=== PATIENT | male | born 1955 | race Caucasian/White ===

== ENCOUNTER 2023-10-29 13:32 | Inpatient (IN) | payer MEDICARE, OTHER ==
[~2023-10-29] VITALS: Ht 177.8 cm; Wt 66.0 kg
[~2023-10-29 13:32] MED LIST: ASPI81EC PO; CEFU500 PO; METR500 PO
[2023-10-29] MEDS ORDERED: NS 1,000 ML IV SCH ×2 (13:45→15:40)
[2023-10-29 14:24] LABS: Source, Urine Clean Catch
[2023-10-29 14:26] LABS: Appearance, Urine Clear (Clear); Bilirubin, Urine Neg (Neg); Blood, Urine Neg (Neg); Color, Urine Yellow (P-Yellow); Glucose Qualitative, Urine Neg (Neg); Ketones, Urine Neg (Neg); Leukocyte Esterase, Urine Neg (Neg); Nitrite, Urine Neg (Neg); Protein, Urine Neg (Neg); Urobilinogen, Urine NORM (Normal)
[2023-10-29 14:32] LABS: Bun/Creatinine Ratio 20.2 (12.0-20.0); Calcium, Blood 9.3 mg/dL (8.5-10.1); Creatinine, Blood 2.58 mg/dL (0.60-1.20); Potassium, Blood 4.6 mmol/L (3.5-5.5)
[2023-10-29] MEDS ORDERED: METO25ER PO (14:47)
[2023-10-29] MEDS ORDERED: LOSA50 PO (14:47)
[2023-10-29] MEDS ORDERED: Crestor20 MG PO (14:48)
[2023-10-29] MEDS ORDERED: HydrALAZINE HCl 20 MG / ML 1ML Vial IV PRN (15:40)
[2023-10-29] MEDS ORDERED: Acetaminophen 325 MG TABLET PO PRN (15:40)
[2023-10-29] MEDS ORDERED: FLU VACC QS2023-24(6MOS UP)/PF 60 MCG/0.5 ML SYRINGE IM SCH (15:40)
[2023-10-29] MEDS ORDERED: Ondansetron HCl 2 MG / ML 2ML Vial IV PRN (15:40)
[2023-10-29 17:14] VITALS: BP 150/79
--- NOTE | 2023-10-29 17:55 | NUR ---
ADMISSION NOTE: PATIENT CAME UP FROM THE ER AMBULATING WITH AN ER STAFF MEMBER. HE IS ALERT AND ORIENTEDX4 AND INDEPENDENT. HE WAS CHANGED INTO A HOSPITAL GOWN, ADMISSION ASSESSMENT COMPLETED, AND MEAL AND WATER PROVIDED. PATIENT ORIENTED TO ROOM, CALL LIGHT WITHIN REACH, NO SIGNS OR SYMPTOMS OF DISTRESS. PLAN OF CARE ONGOING.
[2023-10-29 19:30] VITALS: BP 122/75
--- NOTE | 2023-10-30 04:36 | NUR ---
SHIFT SUMMARY: A&O X4, INDEPENDANT IN ROOM, NS RUNNING AT 150ML/HR, MONITORING LABS, RESTING COMFORTABLY IN BED AT THIS TIME.
[2023-10-30 05:03] VITALS: BP 140/78
[2023-10-30 06:51] LABS: Bun/Creatinine Ratio 18.5 (12.0-20.0); Calcium, Blood 8.9 mg/dL (8.5-10.1); Creatinine, Blood 2.49 mg/dL (0.60-1.20); Potassium, Blood 5.1 mmol/L (3.5-5.5)
[2023-10-30 07:56] VITALS: BP 127/70
[2023-10-30] MEDS ORDERED: Tamsulosin HCl 0.4 MG Cap PO SCH (08:00)
[2023-10-30] MEDS ORDERED: Metoprolol Succinate 25 MG TABCR PO SCH (09:00)
[2023-10-30] MEDS ORDERED: Rosuvastatin Calcium 10 MG Tab PO SCH (09:00)
[2023-10-30] MEDS ORDERED: Aspirin 81 MG TabEC PO SCH (09:00)
[2023-10-30] MEDS ORDERED: Heparin Sodium,Porcine 5,000 UNIT/0.5 ML SDV SC SCH (09:00)
[2023-10-30 15:54] VITALS: BP 131/76
--- NOTE | 2023-10-30 16:29 | NUR ---
SHIFT SUMMARY: PATIENT A/OX4, CALM, PLEASANT AND COOPERATIVE c CARE PROVIDED. PATIENT USES CALL LIGHT APPROPRIATELY AND ABLE TO MAKE NEEDS KNOWN. PATIENT REPORTS URINATING SMALL AMOUNT OF URINE EVERY TIME HE USES THE BATHROOM. BLADDERS SCAN ORDERED Q6 AND PERFORMED STRAIGHT CATH IF RETAINING 350 OR MORE URINE IN BLADDER. POST VOID BLADDER SCAN WERE PERFORMED AT 1200, APPEARS 710 MLS URINE IN BLADDER. PATIENT DENIES DISCOMFORT/PAIN TO SUPRAPUBIC REGION. THIS RN EDUCATES PATIENT c A PLAN OF CARE AND DEMONSTRATES PROPER STERILE POCEDURES PERFORMING A STRAIGHT CATH. PATIENT VERBALIZED UNDERSTANDING AND NO FURTHER QUESTIONS. THIS RN ABLE TO DRAIN 850 MLS CLEAR URINE IN BLADDER VIA STRAIGHT CATH, PATIENT TOLERATED WELL. PATIENT HAS GOOD APPETITE AND INDPENDENT IN ROOM. PATIENT DENIES CP/PRESSURE, N/V, SOB AND DIZZINESS. PATIENT RECEIVED SCHEDULED MEDS PER EMAR, VITAL SIGNS REVIEWED. PIV TO RAC INFUSING NS AT 150 MLS/HR. CALL LIGHT IN REACH.
--- NOTE | 2023-10-30 18:50 | NUR ---
ADDITIONAL NOTE: 1800- BLADDER SCAN 558 MLS APPEAR IN BLADDER. PATIENT PERFORMED STRAIGHT CATH c SOME ASSISTANCE AND ABLE TO DRAINED 700 MLS URINE IN BLADDER.
[2023-10-30 20:10] VITALS: BP 125/75
--- NOTE | 2023-10-31 04:43 | NUR ---
SHIFT SUMMARY: PATIENT A&O X4, INDEPENDENT IN ROOM, SHOWERED THIS SHIFT WITH SET UP AND LIENES CHANGED, BLADDER SCANED AND STRAIGHT CATHED, DENIES PAIN OR DISCOMFORT AT THIS TIME, RESTING COMFORTABLY IN BED THIS SHIFT.
[2023-10-31 04:59] VITALS: BP 128/70
[2023-10-31 06:45] LABS: Bun/Creatinine Ratio 18.8 (12.0-20.0); Calcium, Blood 8.6 mg/dL (8.5-10.1); Creatinine, Blood 2.29 mg/dL (0.60-1.20)
[2023-10-31 07:37] VITALS: BP 128/79
[2023-10-31] MEDS ORDERED: TAMS.4ER PO (13:33)
--- NOTE | 2023-10-31 14:56 | NUR ---
PT AWAKE AT START OF SHIFT. PLEASANT AND CO-OP WITH CARE. AM BLADDER SCAN SHOWING 587cc. DR VORA IN TO SEE PT AND DISCUSS PLAN OF CARE. PT TO STRAIGHT CATH SELF AND THEN ABLE TO D/C TO HOME. PT ABLE TO DEMONSTRATE SELF CATH APPROPRIATLY; JUST OVER 500cc'S URINE OUT. BLADDER SCAN THEN DONE AGAIN, SHOWING 79cc REMAINING. DR VORA UPDATED AND PLACED D/C ORDERS. DR VORA RETURNED TO TO DISCUSS F/U CARE AND STRAIGHT CATH ORDERS FOR HOME. PT VERBALIZED UNDERSTANDING. MEDS FAXED TO , PER PT REQUEST. CATHETER SUPPLIES SENT HOME WITH PT TO GET HIM THRU UNTIL TOMORROW WHEN HE COULD OBTAIN SUPPLIES FROM [facility] OR [facility]. PT TO STRAIGHT CATH Q4-6 HRS, DEPENDING ON RETENSION. DR VORA EXPLAINED DIRECTIONS AND PERAMETERS; SCRIPT GIVEN FROM DR VORA. H/H ALSO ORDERED AND FAXED BY [employer]. PT DENIED FURTHER NEEDS. PT ASSISTED OUT WITH BELONGINGS.
== END 2023-10-31 13:59 | disposition home health service (06) | DRG 684 ==
LOC: ER 13:32 → MEDS 13:33
PROVIDERS: Physician Assistant; ADMIT Internal Medicine
DX: N17.9 Acute kidney failure, unspecified (principal); I35.0 Nonrheumatic aortic (valve) stenosis; I10 Essential (primary) hypertension; N13.30 Unspecified hydronephrosis; N32.89 Other specified disorders of bladder; N40.1 Benign prostatic hyperplasia with lower urinary tract symptoms; R33.8 Other retention of urine; I71.40 Abdominal aortic aneurysm, without rupture, unspecified; Z79.82 Long term (current) use of aspirin
CPT/HCPCS: 36415; 76770; 80048; 81003; 82570; 84300; 96360; 96361; 96372; 99284-25; A9270; G0378; J1644; J7030

== ENCOUNTER 2025-02-27 07:30 | Emergency (ER) | payer MEDICARE, OTHER ==
[~2025-02-27] VITALS: Ht 175.3 cm; Wt 65.8 kg
[~2025-02-27 07:30] MED LIST changes: +Crestor20 MG PO; +LOSA50 PO; +METO25ER PO; +TAMS.4ER PO
[2025-02-27] MEDS ORDERED: ELIQUIS2.5 MG (08:02)
[2025-02-27 10:24] LABS: BASOPHILS ABSOLUTE AUTO 0.05 K/mm3 (0.00-0.23); BASOPHILS PERCENT AUTO 1 % (0-2); EOSINOPHILS ABSOLUTE AUTO 0.03 K/mm3 (0.00-0.68); EOSINOPHILS PERCENT AUTO 0 % (0-6); Hematocrit 44.5 % (37.0-53.0); Hemoglobin 14.4 g/dL (13.5-17.5); IMMATURE GRAN ABSOLUTE AUTO 0.02 K/mm3 (0.00-0.10); IMMATURE GRAN PERCENT AUTO 0 % (0-1); LYMPHOCYTES ABSOLUTE AUTO 0.42 K/mm3 (0.84-5.20); LYMPHOCYTES PERCENT AUTO 5 % (21-46); MONOCYTES ABSOLUTE AUTO 0.57 K/mm3 (0.16-1.47); MONOCYTES PERCENT AUTO 7 % (4-13); Mean Corpuscular HGB 31.9 pg (26.0-34.0); Mean Corpuscular HGB Conc 32.4 g/dL (31.5-36.5); Mean Corpuscular Volume 99 fL (80-100); Mean Platelet Volume 11.4 fL (9.1-12.4); NEUTROPHILS ABSOLUTE AUTO 7.34 K/mm3 (1.96-9.15); NEUTROPHILS PERCENT AUTO 87 % (41-73); Platelet Count 141 K/mm3 (150-400); RDW Coefficient Variation 15.5 % (11.7-14.2); RDW Standard Deviation 56.6 fL (35.1-46.3); Red Blood Cell Count 4.52 M/mm3 (4.30-5.90); White Blood Cell Count 8.43 K/mm3 (4.00-11.30)
[2025-02-27 10:50] LABS: Albumin, Blood 3.5 g/dL (3.4-5.0); Albumin/Globulin Ratio 0.9 (0.8-1.8); Bilirubin, Total 1.3 mg/dL (0.1-1.0); Bun/Creatinine Ratio 17.8 (12.0-20.0); Calcium, Blood 8.9 mg/dL (8.5-10.1); Creatinine, Blood 1.01 mg/dL (0.60-1.20); Globulin, Blood 3.8 g/dL (2.2-4.0); Potassium, Blood 4.2 mmol/L (3.5-5.5); Total Protein, Blood 7.3 g/dL (6.4-8.2)
[2025-02-27 11:55] VITALS: BP 117/84
== END 2025-02-27 11:55 | disposition home or self-care (01) ==
LOC: ER 07:30
PROVIDERS: Emergency Medicine
DX: G45.9 Transient cerebral ischemic attack, unspecified (principal); I48.91 Unspecified atrial fibrillation; N40.1 Benign prostatic hyperplasia with lower urinary tract symptoms; R33.8 Other retention of urine; Z95.2 Presence of prosthetic heart valve; Z79.01 Long term (current) use of anticoagulants; Z79.82 Long term (current) use of aspirin; Z79.899 Other long term (current) drug therapy
CPT/HCPCS: 70450; 80053; 83721; 85025; 93005; 93010; 99285-25